=== PATIENT | female | born 1995 | race Caucasian/White ===

== ENCOUNTER 2016-07-23 09:21 | Emergency (ER) | payer BC ==
--- NOTE | 2016-07-23 09:43 | UC ---
Throat Pain/Nasal Antwon HPI - HPI Summary HPI Summary: complaint of nasal congestion, cough and sore throat which started 06/25/[address] Judge on 07/07/16 and was given zpack which improved her symptoms then 2 days after after finishing treatment started to have productive cough, sore throat, worse nasal congestion sinus pressure in her forehead denies N/V, loose stool felt feverish several times since beginning of illnes taking singular and OTC sinus relief medication without effect - History of Current Complaint Chief Complaint: UCRespiratory Stated Complaint: RESP ISSUE COUGH Time Seen by Provider: 07/23/16 09:29 Hx Obtained From: Patient Hx Last Menstrual Period: ON DEPOPROVERA - Allergies/Home Medications Allergies/Adverse Reactions: Allergies Allergy/AdvReac Type Severity Reaction Status Date / Time Soy Allergy Allergy Unknown Unknown Verified 07/23/16 09:52 Reaction Details bee sting Allergy Severe Anaphylatic Uncoded 07/23/16 09:52 Shock COCKROACHES Allergy Unknown Unknown Uncoded 07/23/16 09:52 Reaction Details DUST MITES Allergy Unknown Unknown Uncoded 07/23/16 09:52 Reaction Details Home Medications: Home Medications Montelukast Sodium TAB* [Singulair 5 mg TAB*] 1 tab PO DAILY 07/23/16 [History Confirmed 07/23/16] PMH/Surg Hx/FS Hx/Imm Hx Previously Healthy: No Endocrine History Of: Denies: Diabetes, Thyroid Disease Cardiovascular History Of: Denies: Cardiac Disorders, Hypertension Respiratory History Of: Reports: Asthma - childhood, Bronchitis - HX OF IN THE PAST Denies: COPD GI/ History Of: Denies: Ulcer Neurological History Of: Reports: Seizures - febrile seizures as infant - Surgical History Surgical History: Yes Surgery Procedure, Year, and Place: T&A. GANGLION CYST LEFT HAND x2 - Family History Known Family History: Positive: Hypertension, Diabetes - maternal grandmother, Other - father and brother with anaphylaxis to bee stings Negative: Cardiac Disease - Social History Occupation: Employed Part-time, Student Lives: With Family Alcohol Use: None Substance Use Type: None Smoking Status (MU): Never Smoked Tobacco - Immunization History Vaccination Up to Date: Yes Review of Systems Constitutional: Fever, Chills Skin: Negative Eyes: Negative ENT: Sore Throat, Ear Ache, Nasal Discharge Respiratory: Cough Cardiovascular: Negative Gastrointestinal: Negative Genitourinary: Negative Motor: Negative Neurovascular: Negative Musculoskeletal: Negative Neurological: Headache Psychological: Negative All Other Systems Reviewed And Are Negative: Yes Physical Exam Triage Information Reviewed: Yes Appearance: No Pain Distress, Well-Nourished, Obese Vital Signs Reviewed: Yes Eyes: Positive: Conjunctiva Clear ENT: Positive: Pharyngeal erythema, Nasal congestion, Nasal drainage, TM bulging , Other: - frontal sinus tenderness. Negative: TM red, Tonsillar swelling, Tonsillar exudate Neck: Positive: No Lymphadenopathy Respiratory: Positive: Lungs clear, Normal breath sounds, No respiratory distress, No accessory muscle use Cardiovascular: Positive: RRR, No Murmur, Pulses Normal Abdomen Description: Positive: Nontender, Soft Bowel Sounds: Positive: Present Musculoskeletal: Positive: No Edema Neurological: Positive: Alert Psychological: Positive: Normal Response To Family Skin Exam: Normal Throat Pain/Nasal Course/Dx - Course Course Of Treatment: exam completed. URI with secondary infection- improved temporarily with zpack, will start augmentin for treatment -followupwith PCP - Differential Dx/Diagnosis Differential Diagnosis/HQI/PQRI: Pharyngitis, Sinusitis, Tonsillitis, URI Provider Diagnoses: sinusitis. elevated blood pressure Discharge - Discharge Plan Condition: Stable Disposition: HOME Prescriptions: Amoxicillin/Clavulanate TAB* [Augmentin TAB 875*] 875 mg PO BID #20 tab Patient Education Materials: Sinusitis (ED) Referrals: Jane Judge MD [Primary Care Provider] - Additional Instructions: SINUSITIS What is Sinusitis? Sinusitis is inflammation or infection of the lining of the sinuses behind the bones in your cheeks or forehead. Sinusitis may occur following a common cold, flu, or other infection; allergies; a tooth infection that spreads to the sinuses; swimming in contaminated water; pressure changes in airplanes at high altitudes; violent sneezing or nose blowing or smoking or breathing other peoples smoke. Symptoms Might Include: Nasal Congestion Sneezing Watery eyes, eye irritation, or eye itching Headaches Pressure in the cheeks Wheezing Trouble smelling Sore throat and coughing may occur Treatment Recommendations: Take medicines as prescribed until completely gone. Drink plenty of fluids. Use saline nose spray to thin the mucous and help the sinuses drain. Use a vaporizer or humidifier. Apply warm compresses to the face or forehead several times a day for 10 to 20 minutes. Call Your Doctor or Return Here IF: Your pain increases during treatment. You develop a high temperature. You develop unusual swelling around the eyes. You have difficulty with your vision. You develop a severe headache, earache, or toothache. You develop increased fever or fever that does not respond to medication such as Tylenol?. You have difficulty breathing or catching your breath. You begin to have any other new symptoms that worry you. Your blood pressure is elevated. Please contact your primary care provider within 1 day -4 weeks for further evaluation.
[2016-07-23 09:52] VITALS: BP 144/86
== END 2016-07-23 09:58 | disposition home or self-care (01) ==
LOC: UCEAST 09:21
DX: J32.9 Chronic sinusitis, unspecified (principal); R56.9 Unspecified convulsions; E66.9 Obesity, unspecified; I10 Essential (primary) hypertension; Z87.09 Personal history of other diseases of the respiratory system; Z91.030 Bee allergy status
CPT/HCPCS: 99212; G0463

== ENCOUNTER 2016-08-28 10:38 | Emergency (ER) | payer BC ==
[2016-08-28 11:10] VITALS: BP 120/62
--- NOTE | 2016-08-28 11:26 | UC ---
Hand/Wrist HPI - HPI Summary HPI Summary: The patient comes in today for: 1. Tight thumb pain: Onset: 24 hours. Palliative/provocative: Movement and touching the area makes it worse. Quality: Dull and sharp. Region: wrist and thumb on the right. Severity: 1/10 Time: Comes and goes. If resting--no pain. Touching and movement creates the pain. Associated symptoms: Numbness: None INjury: NOne. Previous treatment: None. * - History Of Current Complaint Chief Complaint: UCUpperExtremity Stated Complaint: THUMB PAIN Time Seen by Provider: 08/28/16 11:20 Hx Obtained From: Patient Hx Last Menstrual Period: depo - Allergies/Home Medications Allergies/Adverse Reactions: Allergies Allergy/AdvReac Type Severity Reaction Status Date / Time Soy Allergy Allergy Unknown Unknown Verified 07/23/16 09:52 Reaction Details bee sting Allergy Severe Anaphylatic Uncoded 07/23/16 09:52 Shock COCKROACHES Allergy Unknown Unknown Uncoded 07/23/16 09:52 Reaction Details DUST MITES Allergy Unknown Unknown Uncoded 07/23/16 09:52 Reaction Details PMH/Surg Hx/FS Hx/Imm Hx Previously Healthy: No - Bee allergy, alleries. Respiratory History: Asthma - as a child. GI/ History: Gastroesophageal Reflux Other History Of: Negative For: HIV, Hepatitis B, Hepatitis C - Surgical History Surgical History: Yes Surgery Procedure, Year, and Place: T&A. GANGLION CYST LEFT HAND x2 - Family History Known Family History: Positive: Hypertension, Diabetes - maternal grandmother, Other - father and brother with anaphylaxis to bee stings Negative: Cardiac Disease - Social History Occupation: Employed Full-time Alcohol Use: None Substance Use Type: None Smoking Status (MU): Never Smoked Tobacco Household Exposure Type: Cigarettes - Immunization History Vaccination Up to Date: Yes Review of Systems Constitutional: Negative Skin: Negative Eyes: Negative ENT: Negative Respiratory: Negative Cardiovascular: Negative Gastrointestinal: Negative Genitourinary: Negative All Other Systems Reviewed And Are Negative: Yes Physical Exam Triage Information Reviewed: Yes Appearance: Well-Appearing, No Pain Distress, Well-Nourished Vital Signs: Initial Vital Signs Temp 97.5 F 08/28/16 10:52 Pulse 84 08/28/16 10:52 Resp 16 08/28/16 10:52 BP 120/62 08/28/16 10:52 Pulse Ox 100 08/28/16 10:52 Vital Signs Reviewed: Yes Eyes: Positive: Conjunctiva Clear. Negative: Discharge ENT: Negative: Hearing grossly normal, Pharyngeal erythema, Nasal congestion, Nasal drainage, TM bulging, TM dull, TM red, Tonsillar swelling, Tonsillar exudate Dental: Negative: Gross Decay/Caries @, Dental Fracture @ Neck: Positive: Supple, Nontender, No Lymphadenopathy. Negative: Nuchal Rigidity Respiratory: Positive: Chest non-tender, Lungs clear, No respiratory distress, No accessory muscle use. Negative: Crackles, Rhonchi Cardiovascular: Positive: RRR, No Murmur Abdomen Description: Positive: Nontender, No Organomegaly, Soft. Negative: Distended, Guarding Musculoskeletal: Positive: Strength Intact, ROM Intact, Other: - The patient is tender over the extensor pollicis brevis, and the abductor pollicis longus. Finklesteins' test was abnormal and there is no edema or ecchymosis or erythema. Neurological: Positive: Alert, Muscle Tone Normal Psychological: Positive: Age Appropriate Behavior, Consolable Skin: Negative: rashes, breakdown Hand/Wrist Course/Dx - Course Course Of Treatment: Patient told of my diagnosis and treatment plan--she agreed to it. - Differential Dx/Diagnosis Differential Diagnosis/HQI/PQRI: Cellulitis, Sprain Provider Diagnoses: de Quervain's tendonitis right hand. Discharge - Discharge Plan Condition: Stable Disposition: HOME Patient Education Materials: De Quervain Disease (ED), Tenosynovitis (ED) Forms: *Work Release Referrals: Jane Judge MD [Primary Care Provider] -
== END 2016-08-28 11:52 | disposition home or self-care (01) ==
LOC: UCEAST 10:38
DX: M65.4 Radial styloid tenosynovitis [de Quervain] (principal)
CPT/HCPCS: 99213; G0463

== ENCOUNTER 2016-11-09 18:31 | Emergency (ER) | payer BC ==
--- NOTE | 2016-11-09 18:38 | UC ---
Allergic Reaction HPI - HPI Summary HPI Summary: 21 YEAR OLD FEMALE WITH A HISTORY OF AN ANAPHYLACTIC REACTION TO INSECTS PRESENTS WITH COMPLAINS BEE STING - History of Current Complaint Stated Complaint: BEE STING Time Seen by Provider: 11/09/16 18:38 Hx Obtained From: Patient Hx Last Menstrual Period: depo Onset/Duration: Sudden Onset Severity Initially: Moderate Severity Currently: Moderate Pain Scale Used: 0-10 Numeric - 5 Location: Diffuse Character: Swelling Aggrevating Factor(s): Nothing Alleviating Factor(s): Cold - Allergies/Home Medications Allergies/Adverse Reactions: Allergies Allergy/AdvReac Type Severity Reaction Status Date / Time Soy Allergy Allergy Unknown Unknown Verified 11/09/16 18:40 Reaction Details bee sting Allergy Severe Anaphylatic Uncoded 07/23/16 09:52 Shock COCKROACHES Allergy Unknown Unknown Uncoded 07/23/16 09:52 Reaction Details DUST MITES Allergy Unknown Unknown Uncoded 07/23/16 09:52 Reaction Details PMH/Surg Hx/FS Hx/Imm Hx Previously Healthy: Yes Other History Of: Negative For: HIV, Hepatitis B, Hepatitis C - Surgical History Surgical History: Yes Surgery Procedure, Year, and Place: T&A. GANGLION CYST LEFT HAND x2 - Family History Known Family History: Positive: Hypertension, Diabetes - maternal grandmother, Other - father and brother with anaphylaxis to bee stings Negative: Cardiac Disease - Social History Alcohol Use: None Substance Use Type: None Smoking Status (MU): Never Smoked Tobacco Household Exposure Type: Cigarettes - Immunization History Vaccination Up to Date: Yes Review of Systems Constitutional: Negative Skin: Rash Eyes: Negative ENT: Negative Respiratory: Negative Cardiovascular: Negative Gastrointestinal: Negative Genitourinary: Negative Motor: Negative Neurovascular: Negative Musculoskeletal: Negative Neurological: Negative Psychological: Negative All Other Systems Reviewed And Are Negative: Yes Physical Exam Triage Information Reviewed: Yes Eye Exam: Normal ENT Exam: Normal Dental Exam: Normal Neck exam: Normal Neck: Positive: 1 Respiratory Exam: Normal Cardiovascular Exam: Normal Abdominal Exam: Normal Musculoskeletal Exam: Normal Neurological Exam: Normal Psychological Exam: Normal Skin: Positive: rashes Allergic Reaction Course/Dx - Differential Dx/Diagnosis Provider Diagnoses: BEE STING. RASH Discharge - Discharge Plan Condition: Stable Disposition: HOME Prescriptions: Epinephrine [Epipen 2-Devon] 0.3 mg IM ONCE #1 inj LoraTADine TAB(NF) [Claritin 10 MG TAB(NF)] 10 mg PO DAILY #30 tab Ranitidine HCl [Zantac 150 Maximum Streng] 150 mg PO BID #30 tab predniSONE TAB* [Deltasone TAB*] 40 mg PO DAILY #10 tab Patient Education Materials: Insect Bite or Sting (ED) Referrals: Jane Judge MD [Primary Care Provider] -
[2016-11-09 18:40] VITALS: BP 177/75
[2016-11-09] MEDS ORDERED: diPHENhydraMINE PO* 50 MG PO ONE (18:42)
[2016-11-09] MEDS ORDERED: predniSONE TAB* 20 MG PO ONE (18:42)
[2016-11-09] MEDS ORDERED: Famotidine TAB* 20 MG PO ONE (18:43)
== END 2016-11-09 19:20 | disposition home or self-care (01) ==
LOC: UCEAST 18:31
DX: T63.441A Toxic effect of venom of bees, accidental (unintentional), initial encounter (principal); R21 Rash and other nonspecific skin eruption; Y92.9 Unspecified place or not applicable; Z77.22 Contact with and (suspected) exposure to environmental tobacco smoke (acute) (chronic)
CPT/HCPCS: 93005; 99212; A9270-GY; G0463; J7512

== ENCOUNTER 2017-03-05 11:37 | Emergency (ER) | payer BC ==
[2017-03-05 11:45] VITALS: BP 84/48
--- NOTE | 2017-03-05 12:09 | UC ---
Throat Pain/Nasal Antwon HPI - HPI Summary HPI Summary: Since pt woke up today she has had nasal congestion, chills, cough, scratchy throat, vomiting x 1. Mother diagnosed with strep yesterday. Denies fever or rash. - History of Current Complaint Chief Complaint: UCGeneralIllness Stated Complaint: CHILLS NAUSEA VOMITING HEADACHE Time Seen by Provider: 03/05/17 11:59 Hx Obtained From: Patient Hx Last Menstrual Period: depo, ?: No Severity: Mild Cough: Nonproductive Associated Signs & Symptoms: Positive: Nasal Discharge, Vomiting. Negative: Fever - Allergies/Home Medications Allergies/Adverse Reactions: Allergies Allergy/AdvReac Type Severity Reaction Status Date / Time Soy Allergy Allergy Unknown Unknown Verified 03/05/17 11:45 Reaction Details bee sting Allergy Severe Anaphylatic Uncoded 03/05/17 11:45 Shock COCKROACHES Allergy Unknown Unknown Uncoded 07/23/16 09:52 Reaction Details DUST MITES Allergy Unknown Unknown Uncoded 03/05/17 11:45 Reaction Details PMH/Surg Hx/FS Hx/Imm Hx Respiratory History: Asthma GI/ History: Gastroesophageal Reflux Other History Of: Negative For: HIV, Hepatitis B, Hepatitis C - Surgical History Surgical History: Yes Surgery Procedure, Year, and Place: T&A. GANGLION CYST LEFT HAND x2 - Family History Known Family History: Positive: Hypertension, Diabetes - maternal grandmother, Other - father and brother with anaphylaxis to bee stings Negative: Cardiac Disease - Social History Lives: With Family Alcohol Use: None Substance Use Type: None Smoking Status (MU): Never Smoked Tobacco Household Exposure Type: Cigarettes - Immunization History Vaccination Up to Date: Yes Review of Systems Constitutional: Negative Skin: Negative Eyes: Negative ENT: Sore Throat, Ear Ache, Sinus Congestion Respiratory: Cough Cardiovascular: Negative Gastrointestinal: Vomiting Genitourinary: Negative Motor: Negative Neurovascular: Negative Musculoskeletal: Negative Neurological: Negative Psychological: Negative Is Patient Immunocompromised?: No All Other Systems Reviewed And Are Negative: Yes Physical Exam Triage Information Reviewed: Yes Appearance: Well-Appearing, No Pain Distress, Obese Vital Signs: Initial Vital Signs Temp 97.1 F 03/05/17 11:41 Pulse 92 03/05/17 11:41 Resp 20 03/05/17 11:41 BP 84/48 03/05/17 11:41 Pulse Ox 100 03/05/17 11:41 Vital Signs Reviewed: Yes Eye Exam: Normal Eyes: Positive: Conjunctiva Clear ENT: Positive: Pharynx normal, TMs normal, Other - s/p tonsillectomy. Negative : Pharyngeal erythema, Nasal congestion, Nasal drainage, TM bulging, TM dull, TM red Dental Exam: Normal Neck exam: Normal Neck: Positive: Supple, Nontender, No Lymphadenopathy Respiratory Exam: Normal Respiratory: Positive: Chest non-tender, Lungs clear, Normal breath sounds, No respiratory distress, No accessory muscle use Cardiovascular Exam: Normal Cardiovascular: Positive: RRR Abdominal Exam: Other - exam limited by morbid obesity Abdomen Description: Positive: Nontender, Soft Neurological Exam: Normal Neurological: Positive: Alert Psychological Exam: Normal Skin Exam: Normal Throat Pain/Nasal Course/Dx - Course Assessment/Plan: RST negative. Suspect virus. - Differential Dx/Diagnosis Provider Diagnoses: Upper respiratory infection, likely viral Discharge - Discharge Plan Condition: Stable Disposition: HOME Patient Education Materials: Upper Respiratory Infection (ED) Referrals: Jane Judge MD [Primary Care Provider] - Additional Instructions: Rapid strep negative.
== END 2017-03-05 12:30 | disposition home or self-care (01) ==
LOC: UCEAST 11:37
DX: J06.9 Acute upper respiratory infection, unspecified (principal)
CPT/HCPCS: 87651; 99211; G0463

== ENCOUNTER 2017-11-25 15:30 | Emergency (ER) | payer BC ==
[2017-11-25 16:44] VITALS: BP 137/83
--- NOTE | 2017-11-25 17:38 | UC ---
Respiratory Complaint HPI - HPI Summary HPI Summary: 3 DAYS OF SINUS PRESSURE AND COUGH. HAS MILD SORE THROAT. TODAY DEVELOPED NAUSEA AND HAS VOMITED 3 TIMES. NO FEVER OR NASAL DRAINAGE. STATES SHE HAS CHRONIC ISSUES WITH HER SINUSES. SEES [facility] BUT HAS NOT DONE SO FOR A LONG TIME. - History of Current Complaint Chief Complaint: UCRespiratory Stated Complaint: VOMITING,SINUS PAIN & PRESSURE Time Seen by Provider: 11/25/17 17:00 Hx Obtained From: Patient, Family/Mounter Saxophones - MOM Hx Last Menstrual Period: 4 yrs ago Onset/Duration: Gradual Onset, Lasting Days, Still Present Timing: Constant Severity Initially: Moderate Severity Currently: Moderate Pain Intensity: 0 Pain Scale Used: 0-10 Numeric Character: Cough: Nonproductive Aggravating Factors: Nothing Alleviating Factors: Nothing Associated Signs And Symptoms: Positive: URI, Sinus Discomfort. Negative: Dyspnea, Fever, Pleuritic Chest Pain, Wheezing - Allergies/Home Medications Allergies/Adverse Reactions: Allergies Allergy/AdvReac Type Severity Reaction Status Date / Time soy Allergy Unknown Verified 11/25/17 16:44 Reaction Details bee sting Allergy Severe Anaphylatic Uncoded 03/05/17 11:45 Shock COCKROACHES Allergy Unknown Unknown Uncoded 07/23/16 09:52 Reaction Details DUST MITES Allergy Unknown Unknown Uncoded 03/05/17 11:45 Reaction Details PMH/Surg Hx/FS Hx/Imm Hx - Additional Past Medical History Additional PMH: ALLERGIES Respiratory History: Asthma GI/ History: Gastroesophageal Reflux Other History Of: Negative For: HIV, Hepatitis B, Hepatitis C - Surgical History Surgical History: Yes Surgery Procedure, Year, and Place: T&A. GANGLION CYST LEFT HAND x2 - Family History Known Family History: Positive: Hypertension, Diabetes - maternal grandmother, Other - father and brother with anaphylaxis to bee stings Negative: Cardiac Disease - Social History Alcohol Use: None Substance Use Type: None Smoking Status (MU): Never Smoked Tobacco Household Exposure Type: Cigarettes - Immunization History Vaccination Up to Date: Yes Review of Systems Constitutional: Negative ENT: Sore Throat, Sinus Congestion, Sinus Pain/Tenderness Respiratory: Cough Cardiovascular: Negative Gastrointestinal: Vomiting, Nausea All Other Systems Reviewed And Are Negative: Yes Physical Exam Triage Information Reviewed: Yes Appearance: Well-Appearing, No Pain Distress, Well-Nourished, Obese Vital Signs: Initial Vital Signs Temp 98.2 F 11/25/17 16:41 Pulse 94 11/25/17 16:41 Resp 18 11/25/17 16:41 BP 137/83 11/25/17 16:41 Pulse Ox 100 11/25/17 16:41 Vital Signs Reviewed: Yes Eyes: Positive: Conjunctiva Clear ENT: Positive: Hearing grossly normal, Pharynx normal, TMs normal Neck: Positive: Supple, Nontender, No Lymphadenopathy Respiratory Exam: Normal Cardiovascular Exam: Normal Abdomen Description: Positive: Soft Musculoskeletal: Positive: No Edema Neurological: Positive: Alert Psychological: Positive: Normal Response To Family, Age Appropriate Behavior Skin: Negative: rashes UC Diagnostic Evaluation - Laboratory O2 Sat by Pulse Oximetry: 100 Respiratory Course/Dx - Differential Dx/Diagnosis Provider Diagnoses: 1. ACUTE SINUSITIS - LIKELY VIRAL. 2. ACUTE N/V Discharge - Sign-Out/Discharge Documenting (check all that apply): Patient Departure All imaging exams completed and their final reports reviewed: No Studies - Discharge Plan Condition: Stable Disposition: HOME Prescriptions: Ondansetron ODT TAB* [Zofran Odt TAB*] 4 mg PO Q6H PRN #20 tab.odt PRN Reason: Nausea/Vomiting Patient Education Materials: Sinusitis (ED), Acute Nausea and Vomiting (ED) Forms: *Work Release Referrals: Jane Judge MD [Primary Care Provider] - If Needed Additional Instructions: YOUR SYMPTOMS ARE LIKELY VIRALLY MEDIATED AND SHOULD RESOLVE ON THEIR OWN WITH TIME. NO INDICATION FOR ANTIBIOTICS AT PRESENT. REST, HYDRATE, OTC MEDS NEEDED. SEEK FOLLOW-UP WITH YOUR ENT IF YOU ARE NOT IMPROVING OVER THE NEXT 1-2 WEEKS. - Billing Disposition and Condition Condition: STABLE Disposition: Home
== END 2017-11-25 17:35 | disposition home or self-care (01) ==
LOC: UCEAST 15:30
DX: J01.90 Acute sinusitis, unspecified (principal); R11.2 Nausea with vomiting, unspecified; J45.909 Unspecified asthma, uncomplicated; Z91.018 Allergy to other foods; Z91.030 Bee allergy status; Z91.09 Other allergy status, other than to drugs and biological substances
CPT/HCPCS: 99212; G0463

== ENCOUNTER 2018-02-20 16:10 | Inpatient (IN) | payer BC ==
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
--- OUTSIDE RECORDS SUMMARY | 2018-02-20 16:55 | XMS REPORT ---
:1995 External Reference #:[id number] Author Organization [employer] Address [address] [place] [address] [place] [address] Phone [phone] Care Team Providers Name Role Phone Jane Judge MD Primary Care Physician Unavailable Payers Type Date Identification Numbers Payment Provider Subscriber Commercial Policy Number: [id number] [employer] Uyen Covarrubias PayID: [id number] [address] [address] [place] [address] Problems Date Description Provider Status Onset: 08/20/2015 Obstructive sleep apnea syndrome Miguel Morrissey M.D. Active Family History Date Family Member(s) Problem(s) Comments Father due to Lung Cancer () Father due to Prostate Cancer () Mother Diabetes Mother Hypertension Mother Sleep Apnea Mother cataracts Mother acid reflux Siblings 2 1/2 brothers 18 and 16 years Social History Type Date Description Comments Marital Status Single Lives With Mother Occupation Student Cigarette Use Never Smoked Cigarettes ETOH Use Occasionally consumes alcohol Smoking Patient has never smoked Recreational Drug Use Denies Drug Use Daily Caffeine Consumes on average 2 sodas per day Daily Caffeine Consumes on average 1 cup of regular coffee per day Daily Caffeine Consumes on average 12oz of energy drinks per day Exercise Type/Frequency Exercises regularly walking daily, 1-2 miles daily Allergies, Adverse Reactions, Alerts Date Description Reaction Status Severity Comments 08/20/2015 Bee Sting active 01/24/2018 Macrodantin active 01/16/2013 NKDA inactive Medications Medication Date Status Form Strength Qnty SIG Indications Ordering Provider Dexamethasone 01/24/ Active Tablets 1mg 1tabs give at Z68.44 Oquendo 2018 bedtime MD Naif on the evening prior to in the morning lab draw Zetonna 08/18/ Active Aerosol 37mcg/Act 1 spray Unknown 2015 each side once a day Epipen 2-Devon 08/18/ Active Solution 0.3mg/0.3M use as Unknown 2015 Auto-Injec L directed t Omeprazole 08/18/ Active Capsules 20mg [address] mouth every day Proventil HFA / Active Aerosol 108(90Base inhale Unknown 0000 ) mcg/Act two puffs by mouth four times a day as needed Xyzal Allergy / Active Tablets 5mg 1 by Unknown 24HR 0000 mouth every day Montelukast / Active Tablets 10mg 1 by Unknown Sodium 0000 mouth every day Zetonna Nasal / Active 37mcg/Spra as needed Unknown [place] 0000 y Cpap / Active Device for use Unknown 0000 while sleeping Ultracet 01/09/ Hx Tablets 37.5-325mg 60tabs 1-2 Dirk 2013 - tablets Tesfaye, 02/26/ q4-6 hour M.D. 2013 as needed pain No Active 01/16/ Hx Dariana Medications 2012 - Villarreal, 01/09/ M.D. 2013 Zyrtec Allergy / Hx Tablets 10mg 1 by Unknown 0000 - mouth 01/13/ every day 2017 Vital Signs Date Vital Result Comment 01/24/2018 Height 62.25 inches 5'2.25" Weight 362.00 lb w/o shoes Heart Rate 100 /min BP Systolic Sitting 122 mmHg right lower arm BP Diastolic Sitting 72 mmHg right lower arm BMI (Body Mass Index) 65.7 kg/m2 08/20/2015 Height 62.25 inches 5'2.25" Weight 306.25 lb Heart Rate 71 /min BP Systolic 126 mmHg BP Diastolic 82 mmHg Respiratory Rate 14 /min O2 % BldC Oximetry 98 % BMI (Body Mass Index) 55.6 kg/m2 02/27/2014 Height 62.25 inches 5'2.25" Heart Rate 77 /min BP Systolic 141 mmHg BP Diastolic 95 mmHg Blood Pressure Percentile 99 % Height Percentile 22 % 01/27/2014 Height 62.25 inches 5'2.25" Weight 300.00 lb Body Temperature 98.5 F BMI (Body Mass Index) 54.4 kg/m2 Blood Pressure Percentile 0 % Height Percentile 22 % Weight Percentile >97th 01/09/2014 Height 62.25 inches 5'2.25" Weight 300.00 lb Pain Level 1 BMI (Body Mass Index) 54.4 kg/m2 Blood Pressure Percentile 0 % Height Percentile 22 % Weight Percentile >97th 01/16/2013 Height 63 inches 5'3" Weight 300.00 lb BMI (Body Mass Index) 53.1 kg/m2 Blood Pressure Percentile 0 % Height Percentile 33 % Weight Percentile >97th Results Test Date Test Result H/L Range Note Surgical Pathology 01/17/2014 S RUN DATE: <SEE NOTE> 1 1 RUN DATE: 01/21/14 [facility] LAB LIVE PAGE 1 RUN TIME: [address] [place] [address] Specimen Inquiry Name: SHELIA COVARRUBIAS : [address]: Dariana Villarreal MD Acct: [id number] Unit: [id number] AGE: 18 Location: [facility] Re01/17/14 SEX: F Status: REG [facility] SPEC: [id number] CHRISTY: 01/17/14- SUBM DR: Dariana Villarreal MD REQ: [id number] RECD: 01/17/145364 STATUS: SOUT _ ORDERED: LEVEL III FINAL DIAGNOSIS Soft tissue, left wrist, excision: Ganglion cyst. PRE-OPERATIVE DIAGNOSIS Left wrist ganglion cyst GROSS DESCRIPTION The specimen is received in formalin labeled Shelia Covarrubias, Left Wrist Ganglion Cyst, and consists of a 1.3 x 0.9 x 0.4 cm. randle-white rubbery cyst. The cyst contains mucoid material. Submitted entirely, one cassette. Signed (signature on file) Maicol Marinelli MD [id number] END OF REPORT * ML=Testing performed at Main Lab DEPARTMENT OF PATHOLOGY, [address] [place] [address] Maicol Marinelli M.D. Director [facility] # [id number] Procedures Date CPT Code Description Status 01/17/2014 18177 Excision Ganglion Wrist/ Dorsal Or Volar; Primary Completed 01/17/2014 76678 Excision Ganglion Wrist/ Dorsal Or Volar; Primary Completed 01/09/2014 19731 Rad Exam; Wrist, Comp, Min 3 Views Completed 01/16/2013 01507 Rad Exam; Wrist, Comp, Min 3 Views Completed 01/16/2013 62987 Rad Exam; Wrist, Comp, Min 3 Views Completed 12/17/2012 16383 Polysomnography Sleep Staging 4+ Parameters W/Cpap Completed 12/03/2012 46923 Polysomnography Sleep Staging 4+ Parameters Completed Encounters Type Date Location Provider CPT E/M Dx Office Visit 08/20/2015 [facility] Miguel Morrissey M.D. 88739 G47.33 3:30p [facility] [employer] Clerk Office Visit 01/09/2014 [facility] Villarreal 79027 727.05 9:00a C.MAlexAAlex Foss 727.41 Office Visit 01/16/2013 10:30a [facility] Villarreal 29141 719.44 Of [facility] 727.05 Office Visit 10/18/2012 3:19p [facility] Miguel SK. Morrissey, [address] 780.59 MKathy Plan of Care 01/24/2018 - Jere Disla MDN91.1 Secondary amenorrheaReferral:[facility], NutritionistInstructions:1. Blood tests today. 2. Get morning blood tests after you take dexamethasone 1mg. 3. Take dexamethasone 1mg the night before blood tests. 4. You will be referred to [facility]. 5. Start low-carbohydrate diet, per instructions. 6. Return in 3 months for a follow-up visit.L68.0 CgqnhyornC93.44 Body mass index (BMI) 60.0- 69.9, adultNew Medication:Dexamethasone 1 mg
[2018-02-20 17:04] LABS: Urine Appearance Cloudy; Urine Blood Negative (Negative); Urine Color Yellow; Urine Ketones Negative (Negative); Urine Protein Negative (Negative); Urine Red Blood Cell Absent (Absent); Urine Specific Gravity 1.025 (1.010-1.030); Urine Urobilinogen Negative (Negative); Urine White Blood Cell 3+(>20/hpf) (Absent)
[2018-02-20 17:13] LABS: ABS Basophils 0.1 10^3/ul (0-0.2); ABS Eosinophils 0.1 10^3/ul (0-0.6); ABS Lymphocytes 2.3 10^3/ul (1.0-4.8); ABS Monocytes 0.5 10^3/ul (0-0.8); ABS Neutrophils 7.1 10^3/ul (1.5-7.7); ABS Nucleated RBC 0 10^3/ul; Eosinophil % 0.6 %; Hematocrit 41 % (35-47); Hemoglobin 13.4 g/dl (12.0-16.0); Lymphocyte % 22.7 %; Mean Corpuscular HGB Conc 32 g/dl (31-36); Mean Corpuscular Hemoglobin 27 pg (27-31); Mean Corpuscular Volume 83 fL (80-97); Mean Platelet Volume 8.9 fL (7.4-10.4); Nucleated Red Blood Cells % 0.1; Platelet Count 292 10^3/ul (150-450); Red Blood Count 4.96 10^6/ul (4.00-5.40); Red Cell Distribution Width 15 % (10.5-15)
[2018-02-20 17:37] LABS: EGFR Non-African American 94.6 (>60)
[2018-02-21] MEDS ORDERED: Al Hydrox/Mg Hydrox/Simet LIQ* 30 ML UDC PO PRN (01:30)
[2018-02-21] MEDS ORDERED: Acetaminophen TAB* 325 MG PO PRN (01:30)
[2018-02-21] MEDS: Vitamin THERAPEUTIC TAB PO SCH (09:53)
[2018-02-21] MEDS: Omeprazole CAP* 20 MG PO SCH (09:53)
[2018-02-21] MEDS ORDERED: hydrOXYzine HCL TAB* 25 MG PO PRN (11:53)
[2018-02-21] MEDS: FLUoxetine CAP* 20 MG PO SCH (13:17)
--- NOTE | 2018-02-21 16:01 | PN ---
MHU: Group Therapy Note - Service Type Service Type: 25062 Group Psychotherapy - Group Participation Patient Participating in Group: Yes Level of Group Participation: Attentive Relatedness to Group: Well Related - Bisi was pleasant in group and paid attention. She was not very participatory, but she was on topic., Other
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
[2018-02-21] MEDS: Cetirizine* 10 MG TAB PO SCH (22:03)
[2018-02-22] MEDS: FLUoxetine CAP* 20 MG PO SCH (08:45)
[2018-02-22] MEDS: Omeprazole CAP* 20 MG PO SCH (08:45)
[2018-02-22] MEDS: Vitamin THERAPEUTIC TAB PO SCH (08:45)
--- NOTE | 2018-02-22 11:25 | PN ---
MHU: Group Therapy Note - Service Type Service Type: [id number] Group Psychotherapy - Cognitive Behavioral Group Therapy ( CBT):Patient was attentive and participatory in CBT programming this morning, and remained in good behavioral control. Patient expressed positive insights regarding relevant treatment interventions and goals.
--- NOTE | 2018-02-22 14:19 | PN ---
Subjective - Subjective Date of Service: 02/22/18 Service Type: 05921 Hosp care 15 min low complexity Subjective: Bisi is pleasant to talk to and is feeling better. She offers many smiles and feels good here on the unit, likely because of the socialization and reduced isolation. She has met with Seth Tejada who has offered her some solace and guidance. Objective - Appearance Appearance: Healthy Appearing, Obese Dysmorphic Features: No Hygiene: Normal Grooming: Fairly Well Kept - Behavior Psychomotor Activities: Normal Exhibits Abnormal Movement: No - Attitude and Relatedness Attitude and Relatedness: Well Related Eye Contact: Good - Speech Quality: Unpressured Latencies: Normal Quantity: Appropriate - Mood Patient's Decription of Mood: "Good" - Affect Observed Affect: Good Affect Consistent with: Euthymia - Thought Process Patient's Thought Process: Coherent Thought Content: Yes Passive Wish, Yes Suicidal Planning, No Homicidal Ideation, No Paranoid Ideation - Sensorium Experiencing Hallucinations: No, Sensorium is Clear Type of Hallucinations: Visual: No, Auditory: No, Command: No - Level of Consciousness Level of Consciousness: Alert Orientation: Yes Intact, Yes Orientated to Time, Yes Orientated to Place, Yes Orientated to Person - Impulse Control Impulse Control: Tenuous - Insight and Judgement Insight and Judgement: Fair - Group Participation Particating in Group Activities: Yes - Medication Management Medication Management Adherence: Yes - Additional Observations Comments: Bisi is offering that she is improving. She states she's better, but she remains concerned about her father's five years ago. This precipitates feeling of unhappiness and suicidal planning. Assessment - Assessment Merits Inpatient Hospitalization: For Immediate Safety Clinical Impression: Bisi is a 22-year-old woman who comes into the hospital following threats of suicide, which she related to [facility] in an initial crisis appointment, related to her grief over the loss of her father five years ago. Plan - Plan Treatment Plan: Name: BISI MCWILLIAMS Birthdate: 1995 [id number] Continued Medication Management: Start Medication Medications: Current Medications Acetaminophen (Tylenol Tab*) 650 mg PO Q4H PRN PRN Reason: PAIN or TEMP > 101 F Al Hydrox/Mg Hydrox/Simethicone (Maalox Plus*) 30 ml PO Q4H PRN PRN Reason: INDIGESTION Cetirizine HCl (Zyrtec*) 10 mg PO BEDTIME [facility] Last Admin: 02/21/18 22:03 Dose: 10 mg Fluoxetine HCl (Prozac Cap*) 20 mg PO DAILY [facility] Last Admin: 02/22/18 08:45 Dose: 20 mg Hydroxyzine HCl (Atarax Tab*) 25 mg PO Q4H PRN PRN Reason: anxiety/insomnia Multivitamins (Theragran Tab*) 1 tab PO DAILY [facility] Last Admin: 02/22/18 08:45 Dose: 1 tab Omeprazole (Prilosec Cap*) 20 mg PO QAM [facility] Last Admin: 02/22/18 08:45 Dose: 20 mg - Discharge Plan Discharge Plan: Outpatient Follow Up Additional Comments: Bisi will benefit from a therapeutic milieu and start of an SSRI. We choose Prozac as it does not tend to add weight and Bisi is concerned about losing weight. We will start at 20 mg and observe for tolerability and efficacy.
[2018-02-22] MEDS: Cetirizine* 10 MG TAB PO SCH (20:49)
[2018-02-23] MEDS: Omeprazole CAP* 20 MG PO SCH (09:04)
[2018-02-23] MEDS: FLUoxetine CAP* 20 MG PO SCH (09:04)
[2018-02-23] MEDS: Vitamin THERAPEUTIC TAB PO SCH (09:04)
--- NOTE | 2018-02-23 15:55 | PN ---
Subjective - Subjective Date of Service: 02/23/18 Service Type: 55079 Hosp care 15 min low complexity Subjective: Bisi reports feeling much better. She is agreeable to going home on Monday. She is working hard on the [employer]. It has taken her several days now and I asked that she finish it by Monday morning. She is eager to try PROS. She has benefitted significantly from having supportive peers and activities that are stimulating her mind. Objective - Appearance Appearance: Healthy Appearing, Obese Dysmorphic Features: No Hygiene: Normal Grooming: Well Kept - Behavior Psychomotor Activities: Normal Exhibits Abnormal Movement: No - Attitude and Relatedness Attitude and Relatedness: Well Related Eye Contact: Good - Speech Quality: Unpressured Latencies: Normal Quantity: Appropriate - Mood Patient's Decription of Mood: "Good" - Affect Observed Affect: Good Affect Consistent with: Euthymia - Thought Process Patient's Thought Process: Goal Directed Thought Content: Yes Passive Wish, No Suicidal Planning, No Homicidal Ideation, No Paranoid Ideation - Sensorium Experiencing Hallucinations: No, Sensorium is Clear Type of Hallucinations: Visual: No, Auditory: No, Command: No - Level of Consciousness Level of Consciousness: Alert Orientation: Yes Intact, Yes Orientated to Time, Yes Orientated to Place, Yes Orientated to Person - Impulse Control Impulse Control: Tenuous - Insight and Judgement Insight and Judgement: Fair - Group Participation Particating in Group Activities: Yes - Medication Management Medication Management Adherence: Yes - Additional Observations Comments: Bisi is offering that she is improving. She states she's better, but she remains concerned about her father's five years ago. This precipitates feeling of unhappiness and suicidal planning. Assessment - Assessment Clinical Impression: Bisi is a 22-year-old woman who comes into the hospital following threats of suicide, which she related to [facility] in an initial crisis appointment, related to her grief over the loss of her father five years ago. Plan - Plan Treatment Plan: Name: BISI MCWILLIAMS Birthdate: 1995 [id number] Medications: Current Medications Acetaminophen (Tylenol Tab*) 650 mg PO Q4H PRN PRN Reason: PAIN or TEMP > 101 F Al Hydrox/Mg Hydrox/Simethicone (Maalox Plus*) 30 ml PO Q4H PRN PRN Reason: INDIGESTION Cetirizine HCl (Zyrtec*) 10 mg PO BEDTIME [facility] Last Admin: 02/22/18 20:49 Dose: 10 mg Fluoxetine HCl (Prozac Cap*) 20 mg PO DAILY [facility] Last Admin: 02/23/18 09:04 Dose: 20 mg Hydroxyzine HCl (Atarax Tab*) 25 mg PO Q4H PRN PRN Reason: anxiety/insomnia Multivitamins (Theragran Tab*) 1 tab PO DAILY [facility] Last Admin: 02/23/18 09:04 Dose: 1 tab Omeprazole (Prilosec Cap*) 20 mg PO QAM [facility] Last Admin: 02/23/18 09:04 Dose: 20 mg - Discharge Plan Discharge Plan: Outpatient Follow Up Outpatient Program: [facility] Additional Comments: Bisi will benefit from a therapeutic milieu and start of an SSRI. We choose Prozac as it does not tend to add weight and Bisi is concerned about losing weight. We will start at 20 mg and observe for tolerability and efficacy. 02/23/18 We have referred Bisi to [facility] in the outpatient setting. She is exctied about that. In the meantime, we will use weekend programming to help her continue to gain information and strategies, as well as finish the MMPI.
[2018-02-23] MEDS: Cetirizine* 10 MG TAB PO SCH (20:25)
[2018-02-24] MEDS: Omeprazole CAP* 20 MG PO SCH (08:37)
[2018-02-24] MEDS: FLUoxetine CAP* 20 MG PO SCH (08:37)
[2018-02-24] MEDS: Vitamin THERAPEUTIC TAB PO SCH (08:38)
[2018-02-24] MEDS: Cetirizine* 10 MG TAB PO SCH (19:55)
[2018-02-25 09:16] VITALS: BP 128/40
[2018-02-25] MEDS: FLUoxetine CAP* 20 MG PO SCH (09:17)
[2018-02-25] MEDS: Vitamin THERAPEUTIC TAB PO SCH (09:17)
[2018-02-25] MEDS: Omeprazole CAP* 20 MG PO SCH (09:17)
--- NOTE | 2018-02-25 19:36 | PN ---
Subjective - Subjective Date of Service: 02/25/18 Service Type: 10261 Hosp care 15 min low complexity Subjective: Bisi appears to be in good spirit and engaged in the milieu. Says being here and taking meds helped her a lot. Hoping to go home soon. Denies mood, thoughts or perceptual problems. Also denies SI/HI. Objective - Appearance Appearance: Healthy Appearing, Obese Dysmorphic Features: No Hygiene: Normal Grooming: Well Kept - Behavior Psychomotor Activities: Normal Exhibits Abnormal Movement: No - Attitude and Relatedness Attitude and Relatedness: Appropriate Eye Contact: Good - Speech Quality: Unpressured Latencies: Normal Quantity: Appropriate - Mood Patient's Decription of Mood: "Good" - Affect Observed Affect: Good Affect Consistent with: Euthymia - Thought Process Patient's Thought Process: Coherent, Goal Directed Thought Content: No Passive Wish, No Suicidal Planning, No Homicidal Ideation, No Paranoid Ideation - Sensorium Experiencing Hallucinations: No, Sensorium is Clear Type of Hallucinations: Visual: No, Auditory: No, Command: No - Level of Consciousness Level of Consciousness: Alert Orientation: Yes Intact, Yes Orientated to Time, Yes Orientated to Place, Yes Orientated to Person - Impulse Control Impulse Control: Intact - Insight and Judgement Insight and Judgement: Good - Group Participation Particating in Group Activities: Yes - Medication Management Medication Management Adherence: Yes Assessment - Assessment Merits Inpatient Hospitalization: Consolidate Improvements, Pending Safe DC Plan Clinical Impression: Bisi is a 22-year-old woman who comes into the hospital following threats of suicide, which she related to [facility] in an initial crisis appointment, related to her grief over the loss of her father five years ago. Plan - Plan Treatment Plan: Name: BISI MCWILLIAMS Birthdate: 1995 [id number] Continued Medication Management: Continue Outpt Medication Medications: Current Medications Acetaminophen (Tylenol Tab*) 650 mg PO Q4H PRN PRN Reason: PAIN or TEMP > 101 F Al Hydrox/Mg Hydrox/Simethicone (Maalox Plus*) 30 ml PO Q4H PRN PRN Reason: INDIGESTION Cetirizine HCl (Zyrtec*) 10 mg PO BEDTIME [facility] Last Admin: 02/24/18 19:55 Dose: 10 mg Fluoxetine HCl (Prozac Cap*) 20 mg PO DAILY [facility] Last Admin: 02/25/18 09:17 Dose: 20 mg Hydroxyzine HCl (Atarax Tab*) 25 mg PO Q4H PRN PRN Reason: anxiety/insomnia Multivitamins (Theragran Tab*) 1 tab PO DAILY [facility] Last Admin: 02/25/18 09:17 Dose: 1 tab Omeprazole (Prilosec Cap*) 20 mg PO QAM [facility] Last Admin: 02/25/18 09:17 Dose: 20 mg - Discharge Plan Discharge Plan: Outpatient Follow Up Outpatient Program: [facility]
[2018-02-25] MEDS: Cetirizine* 10 MG TAB PO SCH (21:16)
[2018-02-26] MEDS: Omeprazole CAP* 20 MG PO SCH (09:03)
[2018-02-26] MEDS: Vitamin THERAPEUTIC TAB PO SCH (09:03)
[2018-02-26] MEDS: FLUoxetine CAP* 20 MG PO SCH (09:03)
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
== END 2018-02-26 16:30 | disposition home or self-care (01) | DRG 754 ==
LOC: ED 16:10 → BSU 22:56
PROVIDERS: ADMIT Psychiatry & Neurology Psychiatry; ATTEND Psychiatry & Neurology Psychiatry
DX: F43.21 Adjustment disorder with depressed mood (principal); R45.851 Suicidal ideations
CPT/HCPCS: 36415; 80053; 80061; 80307; 80320; 80329; 81003; 81015; 83036; 84443; 84702; 85025; 87086; 90853; 99222; 99231; 99238; 99284; A9270-GY; G0480

== ENCOUNTER → 2018-03-23 12:02 | Emergency (ER) | payer BC ==
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
[2018-03-23 15:36] VITALS: BP 113/64
== END | disposition home or self-care (01) ==
LOC: ED 12:02
DX: S39.012A Strain of muscle, fascia and tendon of lower back, initial encounter (principal); R10.9 Unspecified abdominal pain; X50.9XXA Other and unspecified overexertion or strenuous movements or postures, initial encounter; Y92.9 Unspecified place or not applicable
CPT/HCPCS: 99281

== ENCOUNTER 2018-11-12 17:40 | Emergency (ER) | payer BC ==
--- NOTE | 2018-11-12 19:32 | UC ---
Skin Complaint HPI - HPI Summary HPI Summary: 23-year-old female who has insect bites to the dorsum of both feet. She has been scratching them. The feet are mildly swollen according to the patient and mother however did not appear swollen to me. Last tetanus is unknown. - History of Current Complaint Chief Complaint: UCSkin Time Seen by Provider: 11/12/18 19:32 Stated Complaint: insect BITES Hx Obtained From: Patient Hx Last Menstrual Period: 10/27/18 ?: No Onset/Duration: Gradual Onset Skin Exposure Onset/Duration: Days Ago Timing: Constant Onset Severity: Mild Current Severity: Mild Pain Intensity: 0 Location: Other - Dorsum of both feet. Character: Swelling - Minimal swelling where the bug bites located., Pruritus Aggravating Factor(s): Other - Patient continues to scratch at them. Alleviating Factor(s): Antihistamines - She has been taking some Benadryl. - Allergy/Home Medications Allergies/Adverse Reactions: Allergies Allergy/AdvReac Type Severity Reaction Status Date / Time soy Allergy Unknown Verified 11/12/18 18:19 Reaction Details bee sting Allergy Severe Anaphylatic Uncoded 03/23/18 12:43 Shock COCKROACHES Allergy Unknown Unknown Uncoded 03/23/18 12:43 Reaction Details DUST MITES Allergy Unknown Unknown Uncoded 03/23/18 12:43 Reaction Details Home Medications: Home Medications traMADol TAB* [Ultram*] 50 mg PO Q8HR 11/12/18 [History Confirmed 11/12/18] PMH/Surg Hx/FS Hx/Imm Hx Previously Healthy: Yes Other History Of: Negative For: HIV, Hepatitis B, Hepatitis C - Surgical History Surgical History: Yes Surgery Procedure, Year, and Place: T&A. GANGLION CYST LEFT HAND x2. TONSILLECTOMY. fx t12 - Family History Known Family History: Positive: Hypertension, Diabetes - maternal grandmother, Other - possible maternal uncle suicide Negative: Cardiac Disease - Social History Alcohol Use: None Substance Use Type: Marijuana Substance Use Comment - Amount & Last Used: occasionally Smoking Status (MU): Never Smoked Tobacco Household Exposure Type: Cigarettes - Immunization History Most Recent Influenza Vaccination: dec 2017 Most Recent Pneumonia Vaccination: n/a Vaccination Up to Date: Yes Review of Systems All Other Systems Reviewed And Are Negative: Yes Skin: Positive: Other - Bug bites on the top of her feet. Is Patient Immunocompromised?: No Physical Exam Triage Information Reviewed: Yes Appearance: Well-Appearing, No Pain Distress, Well-Nourished Vital Signs: Initial Vital Signs Temp 98 F 11/12/18 18:13 Pulse 79 11/12/18 18:13 Resp 14 11/12/18 18:13 Pulse Ox 98 11/12/18 18:13 Vital Signs Reviewed: Yes ENT: Positive: Hearing grossly normal, Pharynx normal, TMs normal, Uvula midline Neck: Positive: Supple, Nontender, No Lymphadenopathy Respiratory: Positive: Lungs clear, Normal breath sounds, No respiratory distress, No accessory muscle use Cardiovascular: Positive: RRR, No Murmur, Pulses Normal, Brisk Capillary Refill Musculoskeletal: Positive: Strength Intact, ROM Intact, Other: - She has good peripheral pulses neuro sensation capillary refill. Neurological: Positive: Alert, Muscle Tone Normal Psychological Exam: Normal Skin: Positive: Other - Patient has 2 or 3 bug bites on the dorsum of both feet which she has been scratching but are not presently infected. There is no erythema. She tends to have mildly swollen feet due to her obesity but no swelling around the bug bites. No red streaks. Course/Dx - Course Course Of Treatment: She is comfortable here. I did advise her she could continue Benadryl every 6 hours but she may also add either Zyrtec daily or Claritin daily but not both. She is to apply bacitracin ointment to the area and follow-up with her primary care provider if any worsening symptoms. Tdap is given tetanus immunization here. - Diagnoses Provider Diagnosis: Insect bites Discharge - Sign-Out/Discharge Documenting (check all that apply): Patient Departure All imaging exams completed and their final reports reviewed: No Studies - Discharge Plan Condition: Good Disposition: HOME Patient Education Materials: Insect Bite or Sting (ED) Referrals: Agustin Carter, DI [Primary Care Provider] - Additional Instructions: Avoid scratching the insect bites. You may apply bacitracin ointment to them twice a day. You can continue Benadryl every 6 hours as needed for itching and you may take Zyrtec 1 tablet daily for itching. Watch for signs of infection. Follow-up with your primary care provider in 3 or 4 days if worsening symptoms, red streaks up her leg, pus drainage. You were given Tdap in as a patient which is good for 8-10 years. - Billing Disposition and Condition Condition: GOOD Disposition: Home - Attestation Statements Provider Attestation: Pt not seen by me. I was available for consult. AMIE
[2018-11-12] MEDS ORDERED: Tetan/Diph/Pertus SYR(Tdap)* 0.5 ML SYR(BOOSTRIX) use SYR contains LATEX IM ONE (19:40)
== END 2018-11-12 20:00 | disposition home or self-care (01) ==
LOC: UCEAST 17:40
DX: S90.862A Insect bite (nonvenomous), left foot, initial encounter (principal); S90.861A Insect bite (nonvenomous), right foot, initial encounter; W57.XXXA Bitten or stung by nonvenomous insect and other nonvenomous arthropods, initial encounter; Y92.9 Unspecified place or not applicable
CPT/HCPCS: 90471; 90715; 99211; G0463

== ENCOUNTER 2021-07-01 16:06 | Inpatient (IN) ==
[2021-07-01 18:09] LABS: ABS Lymphocytes 1.3 10^3/ul (1.0-4.8); ABS Monocytes 0.4 10^3/ul (0-0.8); ABS Neutrophils 5.3 10^3/ul (1.5-7.7); Eosinophil % 0.5 %; Hematocrit 39 % (35-47); Hemoglobin 13.4 g/dL (12.0-16.0); Lymphocyte % 18.7 %; Mean Corpuscular HGB Conc 34 g/dL (31-36); Mean Corpuscular Hemoglobin 30 pg (27-31); Mean Corpuscular Volume 88 fL (80-97); Platelet Count 222 10^3/uL (150-450); Red Blood Count 4.47 10^6 /uL (3.70-4.87); Red Cell Distribution Width 15 % (10-15); White Blood Count 7.1 10^3/uL (3.5-10.8)
[2021-07-01 18:42] LABS: ALT 280 U/L (7-52); Albumin 4.3 g/dL (3.2-5.2); Albumin/Globulin Ratio 1.7 (1-3); Alkaline Phosphatase 109 U/L (35-149); Blood Urea Nitrogen 7 mg/dL (6-24); C Reactive Protein 10.78 mg/L (<8.01); CO2 Carbon Dioxide 27 mmol/L (22-32); Calcium 9.5 mg/dL (8.6-10.3); Chloride 104 mmol/L (101-111); Globulin 2.5 g/dL (2-4); Glucose 92 mg/dL (70-100); Lipase 15 U/L (11.0-82.0); Sodium 140 mmol/L (135-145); Total Protein 6.8 g/dL (6.4-8.9); eGFR CKD-EPI 123.4 (>60)
[2021-07-01 19:28] LABS: AST 174 U/L (13-39); Anion Gap 9 mmol/L (2-11); Potassium 3.8 mmol/L (3.5-5.0)
[2021-07-01] MEDS ORDERED: NS 0.9% 1000 ml BAG 2,000 ML IV ONE (20:26)
[2021-07-01] MEDS ORDERED: Droperidol 5 MG/2 ML 2 ML VIAL IV ONE (20:26)
[2021-07-01] MEDS ORDERED: Piperacillin/Tazobac ADVAN 3.375 GM in NS 0.9% 100 ml BAG 100 ML IV ONE (20:41)
[2021-07-01] MEDS ORDERED: Ondansetron 4 mg VIAL 2 MG/ML 2 ml VIAL IV PRN (21:53)
[2021-07-01] MEDS ORDERED: Ondansetron ODT 4 mg TAB 4 MG TAB SL PRN (22:10)
[2021-07-01 22:54] LABS: HCG Pregnancy < 0.60 mIU/mL
[2021-07-02] MEDS: Piperacillin/Tazobac ADVAN 3.375 GM in NS 0.9% 100 ml BAG 100 ML IV SCH ×2 (02:26→11:19)
[2021-07-02] MEDS: Heparin 5000 UNITS/ML 1 mL VIAL SUBCUT SCH ×3 (02:26→13:27)
[2021-07-02 05:56] LABS: ABS Lymphocytes 1.2 10^3/ul (1.0-4.8); ABS Monocytes 0.3 10^3/ul (0-0.8); ABS Neutrophils 5.8 10^3/ul (1.5-7.7); Eosinophil % 0.1 %; Hematocrit 41 % (35-47); Hemoglobin 13.4 g/dL (12.0-16.0); Lymphocyte % 16.4 %; Mean Corpuscular HGB Conc 33 g/dL (31-36); Mean Corpuscular Hemoglobin 29 pg (27-31); Mean Corpuscular Volume 89 fL (80-97); Mean Platelet Volume 10.6 fL (7.4-10.4); Nucleated Red Blood Cells % 0.1; Platelet Count 212 10^3/uL (150-450); Red Blood Count 4.57 10^6 /uL (3.70-4.87); Red Cell Distribution Width 15 % (10-15); White Blood Count 7.3 10^3/uL (3.5-10.8)
[2021-07-02 06:21] LABS: ALT 289 U/L (7-52); Albumin/Globulin Ratio 1.7 (1-3); Alkaline Phosphatase 98 U/L (35-149); Blood Urea Nitrogen 8 mg/dL (6-24); CO2 Carbon Dioxide 23 mmol/L (22-32); Calcium 9.4 mg/dL (8.6-10.3); Chloride 106 mmol/L (101-111); Globulin 2.3 g/dL (2-4); Glucose 100 mg/dL (70-100); Sodium 140 mmol/L (135-145); Total Protein 6.3 g/dL (6.4-8.9)
[2021-07-02 06:39] LABS: Anion Gap 11 mmol/L (2-11)
[2021-07-02] MEDS: Pantoprazole VIAL 40 MG VIAL IV SCH (07:48)
[2021-07-02 08:01] LABS: Direct Bilirubin Redraw 4.3 mg/dL (0.03-0.18); Potassium Redraw 3.6 mmol/L (3.5-5.0)
[2021-07-02] MEDS: NS 0.9% 1000 ml BAG 1,000 ML IV SCH (09:58)
[2021-07-02] MEDS ORDERED: oxyCODONE/Acetamin 5/325 mg TAB PO PRN (12:38)
[2021-07-02] MEDS ORDERED: fentaNYL 100 mcg/2 ml 50 MCG/ML VIAL IV PRN ×2 (12:38→14:32)
[2021-07-02] MEDS ORDERED: Naloxone 0.4 mg VIAL 0.4 mg/ml 1 ml VIAL IV PRN ×2 (12:38→14:32)
[2021-07-02] MEDS ORDERED: DiMENhydriNATE IV 50 mg/ml 1 ml VIAL IV PUSH PRN (12:38)
[2021-07-02] MEDS ORDERED: Ondansetron 4 mg VIAL 2 MG/ML 2 ml VIAL IV PRN (12:38)
[2021-07-02] MEDS ORDERED: Ondansetron 4 mg VIAL 2 MG/ML 2 ml VIAL ONE (13:44)
[2021-07-02] MEDS ORDERED: Dexamethasone IV 4 MG/ML VIAL 1 ml VIAL ONE (13:44)
[2021-07-02] MEDS ORDERED: Propofol 10 MG/ML 20 ML BTL ONE (13:44)
[2021-07-02] MEDS ORDERED: Lidocaine 2% PF 5 ML VIAL ONE (13:46)
[2021-07-02] MEDS ORDERED: Rocuronium 50 mg VIAL 10 mg/ml 5 ml VIAL (50 mg) ONE (13:46)
[2021-07-02] MEDS ORDERED: HYDROmorphone 1 MG/1 ML SYRINGE IV PRN (14:32)
[2021-07-02] MEDS ORDERED: Metoclopramide 5 MG/ML VIAL (10 mg) IV PRN (14:32)
[2021-07-02] MEDS ORDERED: fentaNYL 100 mcg/2 ml 50 MCG/ML VIAL ONE (14:46)
[2021-07-02] MEDS ORDERED: Indomethacin 50 mg SUPP (NF) PR ONE (15:55)
[2021-07-03] MEDS: Piperacillin/Tazobac ADVAN 3.375 GM in NS 0.9% 100 ml BAG 100 ML IV SCH (00:46)
[2021-07-03] MEDS: NS 0.9% 1000 ml BAG 1,000 ML IV SCH (05:39)
[2021-07-03 08:14] LABS: ABS Lymphocytes 1.4 10^3/ul (1.0-4.8); ABS Monocytes 0.4 10^3/ul (0-0.8); ABS Neutrophils 4.8 10^3/ul (1.5-7.7); Eosinophil % 0.2 %; Hematocrit 36 % (35-47); Lymphocyte % 21.4 %; Mean Corpuscular HGB Conc 34 g/dL (31-36); Mean Corpuscular Hemoglobin 30 pg (27-31); Mean Corpuscular Volume 88 fL (80-97); Mean Platelet Volume 10.6 fL (7.4-10.4); Nucleated Red Blood Cells % 0.1; Platelet Count 192 10^3/uL (150-450); Red Blood Count 4.07 10^6 /uL (3.70-4.87); Red Cell Distribution Width 15 % (10-15); White Blood Count 6.7 10^3/uL (3.5-10.8)
[2021-07-03] MEDS: Pantoprazole VIAL 40 MG VIAL IV SCH (08:27)
[2021-07-03 08:57] LABS: Albumin 3.8 g/dL (3.2-5.2); Albumin/Globulin Ratio 1.8 (1-3); C Reactive Protein 12.79 mg/L (<8.01); Calcium 8.8 mg/dL (8.6-10.3); Globulin 2.1 g/dL (2-4); Potassium 3.9 mmol/L (3.5-5.0); Total Bilirubin 5.8 mg/dL (0.2-1.0); Total Protein 5.9 g/dL (6.4-8.9); eGFR CKD-EPI 118.9 (>60)
[2021-07-03] MEDS: Heparin 5000 UNITS/ML 1 mL VIAL SUBCUT SCH (21:37)
[2021-07-04] MEDS: Heparin 5000 UNITS/ML 1 mL VIAL SUBCUT SCH ×3 (06:04→20:33)
[2021-07-04 06:09] LABS: ABS Lymphocytes 2.6 10^3/ul (1.0-4.8); ABS Monocytes 0.4 10^3/ul (0-0.8); ABS Neutrophils 2.2 10^3/ul (1.5-7.7); Eosinophil % 0.8 %; Hematocrit 35 % (35-47); Hemoglobin 11.7 g/dL (12.0-16.0); Lymphocyte % 48.5 %; Mean Corpuscular HGB Conc 33 g/dL (31-36); Mean Corpuscular Hemoglobin 30 pg (27-31); Mean Corpuscular Volume 89 fL (80-97); Mean Platelet Volume 10.3 fL (7.4-10.4); Platelet Count 185 10^3/uL (150-450); Red Blood Count 3.95 10^6 /uL (3.70-4.87); Red Cell Distribution Width 16 % (10-15); White Blood Count 5.3 10^3/uL (3.5-10.8)
[2021-07-04 06:46] LABS: Albumin 3.5 g/dL (3.2-5.2); Albumin/Globulin Ratio 1.8 (1-3); Calcium 8.6 mg/dL (8.6-10.3); Globulin 1.9 g/dL (2-4); Potassium 3.9 mmol/L (3.5-5.0); Total Bilirubin 4.4 mg/dL (0.2-1.0); Total Protein 5.4 g/dL (6.4-8.9); eGFR CKD-EPI 113.2 (>60)
[2021-07-04] MEDS ORDERED: LEVONORGESTREL ETHINYL ESTRADIOL PO SCH (12:00)
[2021-07-05] MEDS ORDERED: NS 0.9% 1000 ml BAG 1,000 ML IV SCH (01:00)
[2021-07-05 05:50] LABS: INR 1.13 (0.86-1.15)
[2021-07-05 05:53] LABS: ABS Eosinophils 0.1 10^3/ul (0-0.6); ABS Lymphocytes 2.3 10^3/ul (1.0-4.8); ABS Monocytes 0.4 10^3/ul (0-0.8); ABS Neutrophils 2.4 10^3/ul (1.5-7.7); Eosinophil % 1.1 %; Hematocrit 39 % (35-47); Hemoglobin 12.5 g/dL (12.0-16.0); Lymphocyte % 44.6 %; Mean Corpuscular HGB Conc 32 g/dL (31-36); Mean Corpuscular Hemoglobin 30 pg (27-31); Mean Corpuscular Volume 92 fL (80-97); Mean Platelet Volume 11.3 fL (7.4-10.4); Platelet Count 183 10^3/uL (150-450); Red Blood Count 4.21 10^6 /uL (3.70-4.87); Red Cell Distribution Width 15 % (10-15); White Blood Count 5.2 10^3/uL (3.5-10.8)
[2021-07-05 06:29] LABS: Calcium 8.8 mg/dL (8.6-10.3); Potassium 3.8 mmol/L (3.5-5.0); eGFR CKD-EPI 113.2 (>60)
[2021-07-05] MEDS ORDERED: Famotidine IV 10 MG/ML 2 ml VIAL (20 mg) IV ONE (08:38)
[2021-07-05] MEDS ORDERED: Dexamethasone IV 4 MG/ML VIAL 1 ml VIAL IV SLOW PU ONE (08:38)
[2021-07-05] MEDS ORDERED: Buffered Lidocaine 1% SYRIN 1 ml INTRADERM ONE ×2 (08:38→09:14)
[2021-07-05] MEDS ORDERED: Dexamethasone IV 4 MG/ML VIAL 1 ml VIAL ONE ×2 (08:59→10:09)
[2021-07-05] MEDS ORDERED: Lactated Ringers 1000 ml BAG 1,000 ML IV SCH (09:00)
[2021-07-05] MEDS ORDERED: Famotidine IV 10 MG/ML 2 ml VIAL (20 mg) ONE (09:00)
[2021-07-05] MEDS ORDERED: ceFAZolin 1 GM in Dextrose 1 GM/50 ML BAG ONE (09:17)
[2021-07-05] MEDS ORDERED: fentaNYL 100 mcg/2 ml 50 MCG/ML VIAL ONE ×3 (09:17→10:13)
[2021-07-05] MEDS ORDERED: Midazolam 2 mg/2 ml VIAL 1 mg/ml 2 ml VIAL (2 mg) ONE (09:17)
[2021-07-05] MEDS ORDERED: ceFAZolin 2 GM in NS PREMIX 2 GM/100 ML BAG IVPB ONE (09:17)
[2021-07-05] MEDS ORDERED: Bupivacaine 0.25% w/EPI 10 ML SDV ONE ×2 (09:20→09:21)
[2021-07-05] MEDS ORDERED: Morphine 4 MG/ML VIAL (1 ml) IV PRN (09:59)
[2021-07-05] MEDS ORDERED: fentaNYL 100 mcg/2 ml 50 MCG/ML VIAL IV PRN (09:59)
[2021-07-05] MEDS ORDERED: Prochlorperazine 5 mg/ml 2 ml VIAL (10 mg) IV PRN (09:59)
[2021-07-05] MEDS ORDERED: oxyCODONE/Acetamin 5/325 mg TAB PO PRN (09:59)
[2021-07-05] MEDS ORDERED: HYDROcodone/ACETAMIN 5/325 mg TAB PO PRN (09:59)
[2021-07-05] MEDS ORDERED: Naloxone 0.4 mg VIAL 0.4 mg/ml 1 ml VIAL IV PRN (09:59)
[2021-07-05] MEDS ORDERED: Ondansetron 4 mg VIAL 2 MG/ML 2 ml VIAL ONE (10:09)
[2021-07-05] MEDS ORDERED: Acetaminophen IV 1 GM/100ML 100 ML IV ONE (10:12)
[2021-07-05] MEDS ORDERED: HYDROmorphone 0.5 MG/0.5 ML SYRINGE ONE (10:45)
[2021-07-05 12:43] VITALS: BP 119/79
== END 2021-07-05 12:20 | disposition home or self-care (01) | DRG 263 ==
LOC: ED 16:06 → MED 16:06 → SUATTDRO 21:53 → MED 07-02 01:30 → SUATTDRO 07-04 07:19
PROVIDERS: ADMIT Hospitalist; ATTEND Surgery